=== PATIENT | male | born 1940 | race Caucasian/White ===

== ENCOUNTER 2022-12-08 20:10 | Observation (INO) ==
[2022-12-08 20:43] LABS: ABS Basophils 0.1 10^3/uL (0.0-0.1); ABS Eosinophils 0.1 10^3/uL (0.0-0.5); ABS Lymphocytes 1.3 10^3/uL (1.0-4.8); ABS Monocytes 0.8 10^3/uL (0.0-1.1); ABS Neutrophils 8.3 10^3/uL (1.5-7.6); Eosinophil % 1.1 %; Hematocrit 34.8 % (38-53); Hemoglobin 11.4 g/dL (13.2-16.3); Lymphocyte % 12.3 %; Mean Corpuscular Hemoglobin 30.2 pg (27-33); Mean Corpuscular Hgb Conc 32.8 g/dL (31-36); Mean Corpuscular Volume 92.3 fL (80-97); Mean Platelet Volume 8.2 fL (7.5-11.2); Platelet Count 298 10^3/uL (150-450); Red Blood Count 3.77 10^6/uL (4.06-5.63); Red Cell Distribution Width 15.1 % (12-17); White Blood Count 10.7 10^3/uL (3.6-10.2)
[2022-12-08 21:14] LABS: ALT 15 U/L (7-52); Albumin 3.5 g/dL (3.2-5.2); Albumin/Globulin Ratio 1.2 (1-3); Alkaline Phosphatase 40 U/L (35-149); Blood Urea Nitrogen 12 mg/dL (6-24); CO2 Carbon Dioxide 26 mmol/L (22-32); Calcium 8.3 mg/dL (8.6-10.3); Chloride 105 mmol/L (101-111); Creatinine, Serum 0.77 mg/dL (0.67-1.17); Glucose 94 mg/dL (70-100); Sodium 134 mmol/L (135-145); Total Protein 6.5 g/dL (6.4-8.9); eGFR CKD-EPI 90.5 (>60)
[2022-12-08 21:15] LABS: High Sens Troponin Baseline 7 pg/mL (<20)
[2022-12-08 21:16] LABS: Anion Gap 3 mmol/L (2-16)
[2022-12-08 22:15] LABS: INR 1.1 (0.88-1.18)
[2022-12-08 22:23] LABS: Potassium Redraw 4.5 mmol/L (3.5-5.0)
[2022-12-09] MEDS ORDERED: Albuterol/Ipratropium NEB.SOL (2.5/0.5 MG) 3 ML NEB.SOLN INH PRN ×2 (02:16→02:20)
[2022-12-09] MEDS ORDERED: Albuterol HFA INHALER 8 gm MDI INH PRN (02:20)
[2022-12-09] MEDS: Cefepime 2 GM in Dextrose 2 GM/50 ML BAG IV SCH ×3 (03:19→21:25)
[2022-12-09] MEDS: Heparin 5000 UNITS/ML 1 mL VIAL SUBCUT SCH ×3 (06:19→21:36)
[2022-12-09] MEDS: SPIRIVA Respimat (tiotropium) 2.5 mcg/inh Inhaler INH SCH (09:45)
[2022-12-09] MEDS: Mometasone/Formoter 100/5 MDI INH SCH ×2 (10:08→21:00)
[2022-12-09] MEDS: Psyllium PAK PO SCH (10:09)
[2022-12-10] MEDS: Cefepime 2 GM in Dextrose 2 GM/50 ML BAG IV SCH ×4 (04:32→21:04)
[2022-12-10] MEDS: Heparin 5000 UNITS/ML 1 mL VIAL SUBCUT SCH ×3 (05:24→21:08)
[2022-12-10 06:58] LABS: Hematocrit 37.6 % (38-53); Hemoglobin 12.6 g/dL (13.2-16.3); Mean Corpuscular Hemoglobin 31.3 pg (27-33); Mean Corpuscular Hgb Conc 33.4 g/dL (31-36); Mean Corpuscular Volume 93.9 fL (80-97); Mean Platelet Volume 7.9 fL (7.5-11.2); Platelet Count 444 10^3/uL (150-450); Red Blood Count 4.01 10^6/uL (4.06-5.63); Red Cell Distribution Width 15.1 % (12-17); White Blood Count 10.5 10^3/uL (3.6-10.2)
[2022-12-10 07:22] LABS: Calcium 9.3 mg/dL (8.6-10.3); Creatinine, Serum 0.96 mg/dL (0.67-1.17); Magnesium 2.1 mg/dL (1.9-2.7); Potassium 3.8 mmol/L (3.5-5.0); eGFR CKD-EPI 79.9 (>60)
[2022-12-10] MEDS: Mometasone/Formoter 100/5 MDI INH SCH ×3 (08:20→22:42)
[2022-12-10] MEDS: SPIRIVA Respimat (tiotropium) 2.5 mcg/inh Inhaler INH SCH (08:21)
[2022-12-10] MEDS: Psyllium PAK PO SCH (08:39)
[2022-12-11] MEDS: Heparin 5000 UNITS/ML 1 mL VIAL SUBCUT SCH ×3 (05:07→21:40)
[2022-12-11] MEDS: Cefepime 2 GM in Dextrose 2 GM/50 ML BAG IV SCH (05:07)
[2022-12-11 06:46] LABS: Hematocrit 37.9 % (38-53); Hemoglobin 12.4 g/dL (13.2-16.3); Mean Corpuscular Hemoglobin 30.4 pg (27-33); Mean Corpuscular Hgb Conc 32.8 g/dL (31-36); Mean Corpuscular Volume 92.8 fL (80-97); Mean Platelet Volume 7.6 fL (7.5-11.2); Platelet Count 494 10^3/uL (150-450); Red Blood Count 4.08 10^6/uL (4.06-5.63); Red Cell Distribution Width 14.8 % (12-17); White Blood Count 11.3 10^3/uL (3.6-10.2)
[2022-12-11 06:51] LABS: Calcium 9.4 mg/dL (8.6-10.3)
[2022-12-11 06:57] LABS: Creatinine, Serum 0.93 mg/dL (0.67-1.17)
[2022-12-11] MEDS: SPIRIVA Respimat (tiotropium) 2.5 mcg/inh Inhaler INH SCH (07:51)
[2022-12-11] MEDS: Mometasone/Formoter 100/5 MDI INH SCH ×2 (07:52→19:31)
[2022-12-11] MEDS: Psyllium PAK PO SCH (09:23)
[2022-12-12 05:52] LABS: Hematocrit 39.5 % (38-53); Mean Corpuscular Hemoglobin 30.3 pg (27-33); Mean Corpuscular Hgb Conc 32.9 g/dL (31-36); Mean Corpuscular Volume 92.1 fL (80-97); Mean Platelet Volume 7.8 fL (7.5-11.2); Platelet Count 486 10^3/uL (150-450); Red Blood Count 4.29 10^6/uL (4.06-5.63); White Blood Count 13.1 10^3/uL (3.6-10.2)
[2022-12-12 06:03] LABS: Calcium 9.6 mg/dL (8.6-10.3); Creatinine, Serum 0.92 mg/dL (0.67-1.17); Potassium 4.3 mmol/L (3.5-5.0); eGFR CKD-EPI 84.1 (>60)
[2022-12-12] MEDS: Heparin 5000 UNITS/ML 1 mL VIAL SUBCUT SCH (06:14)
[2022-12-12] MEDS: Mometasone/Formoter 100/5 MDI INH SCH (07:04)
[2022-12-12] MEDS: SPIRIVA Respimat (tiotropium) 2.5 mcg/inh Inhaler INH SCH (07:05)
[2022-12-12] MEDS: Psyllium PAK PO SCH (07:55)
[2022-12-12] MEDS ORDERED: Lactated Ringers 1000 ml BAG 1,000 ML IV ONE (10:38)
[2022-12-12 10:51] VITALS: BP 129/65
[2022-12-12] MEDS ORDERED: Lactated Ringers 1000 ml BAG 500 ML IV ONE (13:01)
== END 2022-12-12 15:39 | disposition home or self-care (01) ==
LOC: EDHOLD 20:10 → ED 20:10 → SUATTDRO 12-09 00:55 → EDHOLD 12-09 16:11 → MEDTELE 12-09 17:20
PROVIDERS: ADMIT Internal Medicine; ATTEND Internal Medicine